=== PATIENT | male | born 1995 | race Caucasian/White ===

== ENCOUNTER 2023-07-13 18:33 | Emergency (ER) | payer SELFPAY ==
[2023-07-13 18:32] VITALS: BP 124/68; PULSE 63; RESP 20; TEMP 36.9; O2SAT 97
[2023-07-13 18:44] VITALS: O2SAT 98
[2023-07-13 19:39] VITALS: BP 104/57; PULSE 53; RESP 20; O2SAT 98
--- NOTE | 2023-07-13 20:21 | ED.SEIZURE ---
HPI - Seizure General Chief Complaint: Seizure Stated Complaint: SEIZURE Time Seen by Provider: 07/13/23 19:47 Source: patient and family (mother) Mode of arrival: EMS Limitations: no limitations History of Present Illness HPI Narrative: Patient presents accompanied by mother for seizure. Patient has a history of seizures but mother notes that he has not had one in the past 2 years. Patient does not have a neurologist but has a history of seeing a neurologist in the past. Patient takes Keppra 500 mg twice daily but has not been taking it as prescribed. Patient notes that prior to the seizures he was otherwise in his normal state of health. Patient denies alcohol, illicit drug use, recent injuries, recent illness. Patient denies chest pain, shortness of breath, cough, dysuria, abdominal pain, headache, fevers, neck pain, sore throat, rhinorrhea, vision changes, numbness, weakness, abdominal pain, nausea, vomiting, rash. Patient admits to feeling slightly tired but is overall improving. MD complaint: seizure Onset (ago): hour(s) (4) Description of Episode: tonic-clonic movement and post-event confusion Duration of episode: 15 -: minutes(s) Witnessed: Yes - by Other (mother) Trauma: No Seizure History: Yes Place: home Possible Precipitating Event: stress and medication (non compliance with medication) Associated symptoms: denies other symptoms Treatments prior to arrival: benzodiazepines (10 mg IM then 2.5 mg IVP) and other (250 cc of D5 for hypoglycemia.) Related Data Allergies Allergy/AdvReac Type Severity Reaction Status Date / Time No Known Allergies Allergy Mild Verified 07/13/23 18:46 Review of Systems Review of Systems: A 10 system review of systems was completed on the patient and is negative except for what is stated in the HPI. Nursing and ancillary documentation was reviewed. PMFSH Comments At time of signature, I have reviewed and agree with nursing past medical, surgical, social and family history unless otherwise noted. Please see the nursing chart for further information. There is no relevant family history pertinent to the presenting complaint. Past medical history includes anxiety, depression, HIV, seizures patient. Medications include Biktarvy, Keppra cardiology. NKDA. No surgical history. Exam Narrative: CONST: No acute distress. Well nourished. Appears tired. HENMT: Head is normocephalic and atraumatic. Moist mucous membranes. No posterior oropharynx erythema. No tongue abrasions or lacerations. EYES: No conjunctival icterus, injection, or pallor. PERRL. Strabismus. NECK: No meningeal signs. RESP: Able to speak in full sentences. Normal respiratory effort. CTAB. CARDIO: Regular rate. Regular rhythm. 2+ DP and radial pulses bilaterally. GI: Nondistended. No tenderness to palpation. Soft. : No CVA tenderness to palpation. SKIN: No rashes or lesions noted on exposed skin. NEURO: Oriented x3. Moves all extremities. No focal neurological deficits. EXTREM: No pedal edema. No tenderness to palpation or deformities. Course Vital Signs Vital signs: Vital Signs Temperature 98.5 F 07/13/23 18:32 Pulse Rate 63 07/13/23 18:32 Respiratory Rate 20 07/13/23 18:32 Blood Pressure 124/68 07/13/23 18:32 Pulse Oximetry 97 07/13/23 18:32 Oxygen Delivery Room Air 07/13/23 18:32 Temperature 98.5 F 07/13/23 18:32 Pulse Rate 48 L 07/13/23 23:17 Respiratory Rate 17 07/13/23 23:17 Blood Pressure 106/72 07/13/23 23:17 Pulse Oximetry 100 07/13/23 23:17 Oxygen Delivery Room Air 07/13/23 18:44 MDM - Seizure MDM Narrative Medical decision making narrative: This patient presents with symptoms consistent with acute seizure, most likely due to medication noncompliance versus hypoglycemia. I considered, but think less likely, secondary etiologies of epileptic seizures to include drug/toxin etiologies (ETOH, stimulants, medication side effects), metabolic disturban
[2023-07-13] MEDS: levETIRAcetam 1000MG/NACL100ML 1,000 MG/100 ML BAG 400 MG IVPB ×2 (20:46→21:16)
[2023-07-13 21:37] LABS: Basophils Percent Auto 0.3 % (0.2-1.2); Eosinophils Absolute Auto 0.2 K/mm3 (0-0.3); Eosinophils Percent Auto 2.3 % (0-4.4); Hemoglobin 15.3 g/dL (14.0-18.0); Immature Granulocyte Absolute 0.02 K/mm3 (0.00-0.031); Immature Granulocyte Percent A 0.3 % (0-0.5); Immature Platelet Fraction Pct 11.5 % (0.9-11.2); Lymphocytes Absolute Auto 1.82 K/mm3 (0.9-3.2); Lymphocytes Percent Auto 25.1 % (18.3-44.2); Mean Corpuscular HGB Conc 35.6 g/dl (32-36); Mean Corpuscular Hemoglobin 31.9 pg (26-34); Mean Corpuscular Volume 89.8 fl (80-100); Mean Platelet Volume 11.3 fl (7.4-10.4); Monocytes Absolute Auto 0.4 K/mm3 (0.1-0.6); Monocytes Percent Auto 5.7 % (2.6-8.5); Neutrophils Absolute Auto 4.8 K/mm3 (1.3-6.7); Neutrophils Percent Auto 66.3 % (45.5-73.1); Platelet Count Result 104 k/mm3 (150-375); Red Blood Count 4.79 M/mm3 (4.6-6.20); Red Cell Distribution Width 12.1 % (11.5-14.5); White Blood Count 7.3 K/mm3 (4.5-10.0)
[2023-07-13 21:47] LABS: Ethanol < 10 mg/dL (<10)
[2023-07-13 21:55] LABS: Alanine Aminotransferase 13 U/L (6-50); Albumin Level 4.1 g/dL (3.5-5.1); Alkaline Phosphatase 58 U/L (38-126); Anion Gap 6 mmol/L (8-16); Aspartate Amino Transferase 21 U/L (17-59); Bilirubin,Total 0.5 mg/dL (0.2-1.3); Blood Urea Nitrogen 14 mg/dL (9-20); Calcium 8.6 mg/dL (8.4-10.2); Carbon Dioxide 25 mmol/L (22-30); Chloride 106 mmol/L (98-107); Estimated Glomerular Filt Rate > 60; Glucose 89 mg/dL (65-110); Magnesium 2.1 mg/dL (1.6-2.3); Potassium 3.5 mmol/L (3.4-5.0); Sodium 137 mmol/L (137-145)
[2023-07-13 22:24] VITALS: BP 118/79; PULSE 47; RESP 17; O2SAT 98
[2023-07-13 23:17] VITALS: BP 106/72; PULSE 48; RESP 17; O2SAT 100
== END 2023-07-13 23:19 | disposition home or self-care (01) ==
PROVIDERS: Emergency Provider Student in an Organized Health Care Education/Training Program
DX: G40.909 Epilepsy, unspecified, not intractable, without status epilepticus (principal); T42.6X6A Underdosing of other antiepileptic and sedative-hypnotic drugs, initial encounter; Z21 Asymptomatic human immunodeficiency virus [HIV] infection status; Z79.899 Other long term (current) drug therapy
CPT/HCPCS: 36415; 80053; 80307; 83735; 85025; 85055; 96365; 96366; 99284; J1953